=== PATIENT | female | born 1970 | race Caucasian/White ===

== ENCOUNTER → 2016-11-24 08:07 | Outpatient (CLI) | payer MEDICAID ==
[2016-10-23 21:04] VITALS: BMI 27.5
[~2016-11-24 08:07] MED LIST: CYCLOBENZAPRINE10 MG PO; PERCOCET 10/3251 TA1 PO; TRAZODONE HCL50 MG PO
== END | disposition home or self-care (01) ==
LOC: D.RAD 08:07
DX: Z98.890 Other specified postprocedural states (principal)

== ENCOUNTER → 2017-08-23 13:45 | Outpatient (CLI) | payer MEDICAID ==
[2016-10-23 21:04] VITALS: BMI 27.5
== END | disposition home or self-care (01) ==
LOC: D.MRI 13:45
DX: M79.671 Pain in right foot (principal)

== ENCOUNTER → 2018-07-22 12:23 | Outpatient (CLI) | payer MEDICAID ==
[2016-10-23 21:04] VITALS: BMI 27.5
== END | disposition home or self-care (01) ==
LOC: D.MRI 12:23
DX: M25.562 Pain in left knee (principal)